=== PATIENT | female | born 1955 | race Caucasian/White ===

== ENCOUNTER 2020-02-19 07:45 | Day surgery (SDC) | payer MEDICARE, OTHER ==
[~2020-02-19] VITALS: Ht 170.2 cm; Wt 80.7 kg
--- NOTE | ~2020-02-19 | OR ---
[facility] [address] [place], [place] [address] Draft DATE OF OPERATION: 02/19/2020 SURGEON: Sergey Covington MD PREOPERATIVE DIAGNOSIS: Distal radius fracture, comminuted right. POSTOPERATIVE DIAGNOSIS: Distal radius fracture, comminuted right. PROCEDURE PERFORMED: Open reduction and internal fixation of right distal radius. VICE PRESIDENT CORPORATE COMMUNICATIONS: ANESTHESIA: General. BLOOD LOSS: Minimal. TOURNIQUET TIME: 45 minutes. IMPLANTS: Synthes variable angle distal radius plate with 7 screws. BRIEF HISTORY: Dylan is a 64-year-old female who suffered a ground level fall fracturing her distal radius. She had undergone reduction in the ER and came home to have her fracture fixed. Risks and benefits of operative treatment discussed with her and she elected to proceed. DESCRIPTION OF PROCEDURE: Once consent was obtained, she was taken to the operating room. After adequate anesthesia, she was placed on operating room table and all downside pressure points were well padded. The right wrist was prepped and draped in a standard sterile fashion. The standard distal radius was taken through skin and subcutaneous tissue. The FCR was identified, retracted and protected. The floor of the FCR sheath was opened and PATIENT NAME: DYLAN LYLE OPERATIVE REPORT DATE OF : 51 REPORT #: [id number] PHYSICIAN: SERGEY COVINGTON MD PCP: JEFFREY YADAV MD REPORT IS CONFIDENTIAL AND NOT TO BE RELEASED WITHOUT AUTHORIZATION [facility] [address] [place], [place] [address] Draft blunt dissection was taken down to the pronator. The pronator was elevated off its radial attachment and mobilized medially to protect the median nerve. The fracture was readily identifiable and was reduced. We placed the plate on the center of the distal radius and aligned it with the articular surface. A central screw and the plate then held it in position. We then reduced the distal radius to it and placed 2 distal locking screws in the midportion of the plate. This was then checked using image intensifier. Reduction was found to be good with the exception of the radial styloid. We then reduced the radial styloid to the plate and used the radial most screw into that to hold it in position. The final screw was then placed on the ulnar side. The 2 proximal screws were drilled and appropriate length screws were placed. The wound was copiously irrigated with antibiotic solution. The pronator was then closed back into position with 3-0 Monocryl for the FCR sheath with 3-0 Monocryl and the skin with a 3-0 Prolene. Steri-Strips were applied. The wound was dressed with an Acticoat dressing. She was placed in a radial gutter splint and taken to the recovery room in satisfactory condition. All sponge, needle, and instrument counts were correct. Sergey Covington MD BA/MODL /[id number] Copies: ~ PATIENT NAME: DYLAN LYLE OPERATIVE REPORT DATE OF : 51 REPORT #: [id number] PHYSICIAN: SERGEY COVINGTON MD PCP: JEFFREY YADAV MD REPORT IS CONFIDENTIAL AND NOT TO BE RELEASED WITHOUT AUTHORIZATION
[~2020-02-19 07:45] MED LIST: ACYCLOVIR400 MG PO; CALCIUM + D3 E1 EACH PO; FAMOTIDINE20 MG PO; FISH OIL 500 M1 EAC3 PO; LOW DOSE ASPIRI81 MG PO; STOOL SOFTENER250 MG PO; VERAPAMIL ER120 M1 PO
[2020-02-19] MEDS ORDERED: OXYCODONE HCL5 MG PO (08:53)
[2020-02-19] MEDS ORDERED: BONIVA150 MG PO (08:55)
[2020-02-19] MEDS ORDERED: HYDROCODON-ACE1 EA11 PO (12:02)
[2020-02-19] MEDS ORDERED: DICLOFENAC SODI75 MG PO (12:02)
--- NOTE | 2020-02-19 12:09 | NUR ---
02/19/20 1209 Linda Epps 1157- PT TO PACU IN SUPINE POSITION. EYES CLOSED. RESPONDS TO VERBAL STIMULI AND FALLS QUICKLY BACK TO SLEEP. BREATHING EASY AND UNLABORED. SPO2 >95% ON 6 L O2 VIA SIMPLE MASK. 1205- PT ASKING QUESTIONS ABOUT PROCEDURE. O2 TITRATED DOWN TO ROOM AIR. SPO2 >95%. BREATHING EASY AND UNLABORED. PT DENIES NAUSEA AND RATES PAIN 4/10. PT STATES THAT IS A TOLERABLE LEVEL OF PAIN. RR 10. WILL CONTINUE TO MONITOR.
--- NOTE | 2020-02-19 13:00 | NUR ---
1245-REPORT RECEIVED AT BEDSIDE IN PACU FROM HERNESTO GARCIA. PT IN STBALE CONDITION AND REPORTS 3/10 PAIN IN WRIST AND DENIES NAUSEA. PT BROUGHT TO DS ROOM 5 AND WATER AND JELLO PROVIDED. PT'S AT BEDSIDE AND CALL LIGHT WITHIN REACH
--- NOTE | 2020-02-19 13:26 | NUR ---
PT TOLERATING PO. PT MEDICATED FOR PAIN SE EEMAR. PT GIVEN MORE CRACKERS AND WATER. DISCUSSED DISCHARGE CRITERIA. PT AND AGREEABLE. CALL LIGHT WITHIN REACH
--- NOTE | 2020-02-19 14:17 | NUR ---
1245-PT'S CALL LIGHT ALARMING. PT REQUESTS TO USE BATHROOM. PT DANGLES AT BEDSIDE AND TOLERATES. PT AMBULATES TO RESTROOM AND VOIDS WITHOUT DIFFICULTY. PT BACK TO BED. IV DC'D WNL. 1405-VSS. PT REPORTS TOLERABLE PAIN LEVEL AND DENIES NAUSEA. TOLERATES PO. PT ASSITED WITH DRESSING AND DC INSTRUCTIONS WITH PRECAUTIONS PROVIDED TO PT AND . BOTH VERBALIZE UNDERSTANDING AND DENY FURTHER QUESTIONS. PT TRANSPORTED IN WHEELCHAIR TO VEHICLE DRIVEN BY .
== END 2020-02-19 14:09 | disposition home or self-care (01) ==
LOC: DS 07:45
PROVIDERS: Specialist
PROC: 0PSH04Z Reposition Right Radius with Internal Fixation Device, Open Approach (ICD-10-PCS; principal; 2020-02-19 10:00)
DX: S52.501A Unspecified fracture of the lower end of right radius, initial encounter for closed fracture (principal); I10 Essential (primary) hypertension; I25.2 Old myocardial infarction; K21.9 Gastro-esophageal reflux disease without esophagitis; Z79.899 Other long term (current) drug therapy; Z88.0 Allergy status to penicillin; Z87.891 Personal history of nicotine dependence; W01.0XXA Fall on same level from slipping, tripping and stumbling without subsequent striking against object, initial encounter
CPT/HCPCS: 01830; 64417; 73100; 76942; A9270; C1713; J0690; J0735; J2001; J2250; J2405; J2704; J7121

== ENCOUNTER 2022-01-22 11:37 | Day surgery (SDC) | payer MEDICARE, OTHER ==
[~2022-01-22] VITALS: Ht 170.2 cm; Wt 70.4 kg
[~2022-01-22 11:37] MED LIST changes: +BONIVA150 MG PO; +DICLOFENAC SODI75 MG PO; +HYDROCODON-ACE1 EA11 PO; +OXYCODONE HCL5 MG PO
--- NOTE | 2022-01-23 14:15 | OR ---
[facility] [address] [place], [place] [address] Signed DATE OF OPERATION: 01/22/2022 SURGEON: Adarsh Chan MD PREOPERATIVE DIAGNOSES: 1. Longstanding known gastroesophageal reflux. 2. Episodic "choking" and dysphagia. POSTOPERATIVE DIAGNOSES: Distal esophageal Schatzki's ring with associated inflammatory changes; hiatal hernia. PROCEDURE: Esophagogastroduodenoscopy with biopsy. ANESTHESIA: Intravenous sedation, fentanyl 100 mcg and Versed 5 mg. INDICATION: This 66-year-old white woman, who is a patient of Dr. Yadav. She is referred for consideration of upper endoscopy on the basis of complaints of "choking" more accurately characterized as proximal dysphagia. She also notes that her voice is "weaker." She has a globus type sensation from time to time. She has no actual regurgitation nor has she had food durably impacted. She does have associated self-described asthma possibly related to reflux. She has been on Zantac in the past, more recently Prilosec occasionally b.i.d., but extent of her use of Prilosec currently is uncertain. She was admitted at this time to undergo upper endoscopy to better characterize the problem, understand the risks of bleeding, infection, and perforation. FINDINGS: There was no evidence of esophageal malignancy. She did have what appeared to be a Schatzki's ring in the distal portion and inflammatory change. There was no evidence of Godfrey's. There was a hiatal hernia, small to moderate in size. The stomach itself was normal as was the duodenum. CLOtest was negative. DESCRIPTION OF PROCEDURE: The patient was brought to the endoscopy suite, given topical lidocaine hypopharyngeal anesthesia and placed in the lateral decubitus position. She was given intravenous sedation with full cardiopulmonary monitoring to a point of slurred speech and nystagmus. A bite block was placed. Electronically Signed By: ADARSH CHAN MD 01/23/22 1418 PATIENT NAME: JED LYLE OPERATIVE REPORT DATE OF : 51 REPORT #: [id number] PHYSICIAN: ADARSH CHAN MD PCP: JEFFREY YADAV MD REPORT IS CONFIDENTIAL AND NOT TO BE RELEASED WITHOUT AUTHORIZATION [facility] [address] [place], [place] [address] Signed An Olympus video upper endoscope was passed in the hypopharynx and vocal cords easily visualized. The scope was advanced to the esophagus without problem. Throughout its length, it appeared normal except in the distal portion, there was one area suggestive of ulcerative esophagitis associated with possible Schatzki's ring. The scope was passed to the stomach, which was insufflated with air. Rugal folds were normal as was the antrum and pylorus. The scope was passed into the duodenum, which was normal. Biopsies were obtained to assess for celiac disease. The scope was withdrawn and biopsies then taken of the antrum for both KATHERINE and pathologic testing. Retroflexed view was undertaken confirming a small to moderate-sized hiatal hernia. The scope was withdrawn to the distal esophagus. The area of inflammation was multiply biopsied. Again, there was no evidence of Godfrey's epithelium. However, there was an apparent Schatzki's ring like web. Further withdrawal of scope allowed for good visualization of the mid esophagus. There was no evidence of biopsies were obtained nevertheless to assess for eosinophilic esophagitis. The scope was withdrawn and removed. The patient was taken to the recovery room in good condition. CONCLUDING DIAGNOSIS: Distal esophageal inflammation, Schatzki's ring, no evidence of malignancy. PLAN: Recommend continued use of PPI medication for now. We will review her pathology reports in the near future and outline a plan of improvement if biopsy and disruption of the Schatzki's ring does not improve her dysphagia. MD KAREN Ha/MODL /[id number] cc: Jeffrey Yadav MD Copies: JEFFREY YADAV MD ~ Electronically Signed By: ADARSH CHAN MD 01/23/22 1415 PATIENT NAME: JED LYLE OPERATIVE REPORT DATE OF : 51 REPORT #: [id number] PHYSICIAN: ADARSH CHAN MD PCP: JEFFREY YADAV MD REPORT IS CONFIDENTIAL AND NOT TO BE RELEASED WITHOUT AUTHORIZATION
--- NOTE | 2022-01-23 15:48 | PATH ---
[facility] [address] [place], [place] [address] Signed SPECIMEN(S): A DUODENAL BIOPSY SPECIMEN(S): B ANTRUM/PYLORUS BIOPSY SPECIMEN(S): C DISTAL ESOPHAGEAL BIOPSY SPECIMEN(S): D MID ESOPHAGEAL BIOPSY SPECIMEN SOURCE: A. DUODENAL BIOPSY B. ANTRUM/PYLORUS BIOPSY C. DISTAL ESOPHAGEAL BIOPSY D. MID ESOPHAGEAL BIOPSY CLINICAL HISTORY: EGD. Postop: Erosive esophagitis, Schatzki's ring. FINAL PATHOLOGIC DIAGNOSIS: A. Duodenum, biopsy: - Duodenal mucosa with features of peptic duodenitis. - Negative for increased intraepithelial lymphocytes. - Negative for dysplasia or malignancy. B. Stomach, antrum/pylorus, biopsy: - Antral/oxyntic mucosa with chronic, inactive gastritis. - Negative for Helicobacter organisms on HE stain. - Negative for dysplasia or malignancy. C. Esophagus, distal, biopsy: - Squamocolumnar junctional mucosa with acute inflammation and reactive changes, consistent with reflux esophagitis. - Negative for intestinal metaplasia, dysplasia, or malignancy. D. Esophagus, mid, biopsy: - Squamous mucosa with mild reactive changes. - Negative for increased intraepithelial eosinophils. - Negative for intestinal metaplasia, dysplasia, or malignancy. COMMENT: Regarding specimen C: A PAS/D stain to evaluate for fungal organisms is pending and will be reported in an addendum. NAL:cml:C2NR MICROSCOPIC EXAMINATION: Histologic sections of all submitted blocks are examined by light microscopy. These findings, together with the gross examination, support the pathologic diagnosis. PATIENT NAME: JED LYLE PATHOLOGY DATE OF : 51 REPORT #: [id number] PHYSICIAN: SUJATA PATHOLOGY PCP: JEFFREY YADAV MD REPORT IS CONFIDENTIAL AND NOT TO BE RELEASED WITHOUT AUTHORIZATION [facility] [address] [place], [place] [address] Signed GROSS DESCRIPTION: Four specimens are received in four containers, labeled "MP." A. The specimen, labeled "MP, duodenum biopsy," is received in formalin and consists of two bailey soft tissue fragments that measure 0.1 cm in greatest dimension. The specimen is entirely submitted in cassette (A1). B. The specimen, labeled "MP, antrum biopsy," is received in formalin and consists of two bailey soft tissue fragments that measure 0.1-0.2 cm in greatest dimension. The specimen is entirely submitted in cassette (B1). C. The specimen, labeled "MP, distal esophagus biopsy," is received in formalin and consists of five bailey soft tissue fragments that measure 0.2-0.3 cm in greatest dimension. The specimen is entirely submitted in cassette (C1). D. The specimen, labeled "MP, mid esophagus biopsy," is received in formalin and consists of three bailey soft tissue fragments that measure 0.1-0.2 cm in greatest dimension. The specimen is entirely submitted in cassette (D1). JS (under the direct supervision of a pathologist) The Gross Description was prepared using a voice recognition system. The report was reviewed for accuracy; however, sound-alike word errors, addition and/or deletions may occur. If there is any question about this report, please contact Client Services. PERFORMING LABORATORY: The technical component was performed by [email or web address], [address] [place] [id number] (CLIA# [id number]). Professional interpretation was performed by [email or web address], [facility], [address] [address] (IA# [id number]). Diagnostician: Amaya Marion MD Pathologist Electronically Signed 01/23/2022 Copies: ~ PATIENT NAME: JED LYLE PATHOLOGY DATE OF : 51 REPORT #: [id number] PHYSICIAN: SUJATA PATHOLOGY PCP: JEFFREY YADAV MD REPORT IS CONFIDENTIAL AND NOT TO BE RELEASED WITHOUT AUTHORIZATION
== END 2022-01-22 15:15 | disposition home or self-care (01) ==
LOC: OPS 11:37 → DS 11:37 → OPS 13:00 → DS 13:00 → OPS 15:15
PROVIDERS: ATTEND Surgery
PROC: 0DB68ZX Excision of Stomach, Via Natural or Artificial Opening Endoscopic, Diagnostic (ICD-10-PCS; 2022-01-22)
PROC: 0DB58ZX Excision of Esophagus, Via Natural or Artificial Opening Endoscopic, Diagnostic (ICD-10-PCS; 2022-01-22)
PROC: 0DB98ZX Excision of Duodenum, Via Natural or Artificial Opening Endoscopic, Diagnostic (ICD-10-PCS; principal; 2022-01-22 13:00)
DX: K29.50 Unspecified chronic gastritis without bleeding (principal); K21.00 Gastro-esophageal reflux disease with esophagitis, without bleeding; K29.80 Duodenitis without bleeding; K44.9 Diaphragmatic hernia without obstruction or gangrene; J45.909 Unspecified asthma, uncomplicated; K22.2 Esophageal obstruction; Z20.822 Contact with and (suspected) exposure to COVID-19; I47.1 Supraventricular tachycardia; Z88.1 Allergy status to other antibiotic agents; Z88.0 Allergy status to penicillin; Z88.2 Allergy status to sulfonamides
CPT/HCPCS: 87502; 99153; C9803; G0500; J2250; J3010; J7121; U0003

== ENCOUNTER 2023-08-29 09:31 | Emergency (ER) | payer MEDICARE, OTHER ==
[~2023-08-29] VITALS: Ht 170.2 cm; Wt 70.2 kg
--- OUTSIDE RECORDS SUMMARY | 2023-08-29 09:35 | XMS ---
PreManage Notification: JED LYLE Security Matrix Plater Events No recent Security Events currently on file [facility] There are no care providers on record at this time. Mary Ann has no Care Guidelines for this patient. Emma VISIT COUNT (12 MO.) 1 VITALIY Siddiqui TOTAL 1 NOTE: Visits indicate total known visits. ED/C VISIT TRACKING (12 MO.) 08/29/2023 09:33 VITALIY Rose [place] TYPE: Emergency COMPLAINT: - DIFFICULTY SWALLOWING INPATIENT VISIT TRACKING (12 MO.) No inpatient visits to display in this time frame [email or web address]
[2023-08-29 09:56] LABS: BASOPHILS 0.6 % (0-2); EOSINOPHILS 0.4 % (0-6); HEMOGLOBIN 13.2 g/dL (12.0-18.0); LYMPHOCYTES 37.8 % (24-44); MCH 30.7 (27-36); MCV 90.4 fl (81-99); MONOCYTES 9.8 % (0-12); NEUTROPHILS 51.4 % (39-80); PLATELET COUNT 291 K/uL (140-440); RBC 4.31 M/ul (4.3-5.7); RDW 15.1 (10.5-15.0)
[2023-08-29] MEDS ORDERED: CHLORTHALIDONE25 MG PO (09:58)
[2023-08-29] MEDS ORDERED: LOSARTAN POTASS50 MG PO (09:58)
[2023-08-29] MEDS ORDERED: IBANDRONATE SO150 MG PO (09:59)
[2023-08-29 10:23] LABS: ALBUMIN 3.7 g/dL (3.4-5.0); ALBUMIN/GLOBULIN RATIO 0.79 (1.1-2.4); ANION GAP 16.1 (7-21); BILIRUBIN, TOTAL 0.6 ng/dL (0.2-1.0); BUN/CREATININE RATIO 25.71 (6.0-28.6); CALCIUM 9.2 mg/dL (8.5-10.1); CREATININE, SERUM 1.05 mg/dL (0.55-1.02); POTASSIUM 3.1 mmol/L (3.5-5.1); PROTEIN, TOTAL 8.4 g/dL (6.4-8.2)
[2023-08-29 10:45] VITALS: BP 136/78
--- NOTE | 2023-08-29 19:01 | EKG ---
[facility] [address] [facility] [place], [place] [address] Signed Normal sinus rhythm Nonspecific ST abnormality Non-diagnostic inferior Q waves Confirmed by Guerrero Swift M.D. ([id number]) on 08/29/2023 7:01:17 PM Electronically Signed By: GUERRERO SWIFT 08/29/23 190 PATIENT NAME: JED LYLE Electrocardiogram DATE OF : 51 PHYSICIAN: GUERRERO SWIFT REPORT #: [id number] REPORT IS CONFIDENTIAL AND NOT TO BE RELEASED WITHOUT AUTHORIZATION
== END 2023-08-29 10:45 | disposition home or self-care (01) ==
LOC: ED 09:31
PROVIDERS: Emergency Medicine
DX: R07.89 Other chest pain (principal); R13.10 Dysphagia, unspecified; I25.10 Atherosclerotic heart disease of native coronary artery without angina pectoris; Z87.891 Personal history of nicotine dependence; Z88.0 Allergy status to penicillin; Z88.2 Allergy status to sulfonamides; Z88.8 Allergy status to other drugs, medicaments and biological substances; Z79.899 Other long term (current) drug therapy; Z79.82 Long term (current) use of aspirin
CPT/HCPCS: 36415; 71045; 80053; 84484; 85025; 93005; 93010

== ENCOUNTER 2024-10-01 13:22 | Emergency (ER) | payer MEDICARE, OTHER ==
[~2024-10-01] VITALS: Ht 170.2 cm; Wt 68.9 kg
[~2024-10-01 13:22] MED LIST changes: +CHLORTHALIDONE25 MG PO; +IBANDRONATE SO150 MG PO; +LOSARTAN POTASS50 MG PO; +STOOL SOFTENER100 M1 PO; -STOOL SOFTENER250 MG PO
[2024-10-01 13:42] LABS: BASOPHILS 0.7 % (0-2); EOSINOPHILS 0.5 % (0-6); HEMATOCRIT 34.8 % (35.0-50.0); HEMOGLOBIN 11.7 g/dL (12.0-18.0); LYMPHOCYTES 43.7 % (24-44); MCHC 33.7 g/dl (30-36); MONOCYTES 8.3 % (0-12); NEUTROPHILS 46.8 % (39-80); PLATELET COUNT 244 K/uL (140-440); RBC 3.67 M/ul (4.3-5.7)
[2024-10-01] MEDS ORDERED: ASPIRIN 81 MG CHEW PO ONE (13:45)
[2024-10-01] MEDS ORDERED: OMEPRAZOLE40 MG PO (13:50)
[2024-10-01] MEDS ORDERED: MAGNESIUM400 M1 PO (13:52)
[2024-10-01] MEDS ORDERED: CLOBETASOL PROP15 G3 TOP (13:52)
[2024-10-01] MEDS ORDERED: CALCIUM +D & M1 EACH PO (13:53)
[2024-10-01 13:57] LABS: ALBUMIN 3.8 g/dL (3.4-5.0); ALBUMIN/GLOBULIN RATIO 0.88 (1.1-2.4); ANION GAP 15.7 (7-21); BILIRUBIN, TOTAL 0.2 mg/dL (0.2-1.0); BUN/CREATININE RATIO 22.98 (6.0-28.6); CALCIUM 9.1 mg/dL (8.5-10.1); CREATININE, SERUM 0.87 mg/dL (0.55-1.02); MAGNESIUM 2.1 mg/dL (1.8-2.4); POTASSIUM 3.7 mmol/L (3.5-5.1); PROTEIN, TOTAL 8.1 g/dL (6.4-8.2)
[2024-10-01 16:07] VITALS: BP 164/68
--- NOTE | 2024-10-04 19:36 | EKG ---
[facility] [address] [facility] [place] [address] Signed Normal sinus rhythm Normal ECG No previous ECGs available Confirmed by Bhavya Pereyra MD ([id number]) on 10/04/2024 7:36:03 PM Electronically Signed By: BHAVYA PEREYRA MD 10/04/241935 PATIENT NAME: JED LYLE Electrocardiogram DATE OF : 51 PHYSICIAN: BHAVYA PEREYRA MD REPORT #: [id number] REPORT IS CONFIDENTIAL AND NOT TO BE RELEASED WITHOUT AUTHORIZATION
== END 2024-10-01 16:07 | disposition home or self-care (01) ==
LOC: ED 13:22
PROVIDERS: Emergency Medicine
DX: R07.89 Other chest pain (principal); I10 Essential (primary) hypertension; I25.2 Old myocardial infarction; Z87.891 Personal history of nicotine dependence; Z88.1 Allergy status to other antibiotic agents; Z88.0 Allergy status to penicillin; Z88.2 Allergy status to sulfonamides; Z88.8 Allergy status to other drugs, medicaments and biological substances; Z79.82 Long term (current) use of aspirin; Z79.899 Other long term (current) drug therapy
CPT/HCPCS: 36415; 71045; 80053; 83735; 84484; 85025; 93005; 93010; 99285-25; A9270